=== PATIENT | male | born 1995 | race Caucasian/White ===

== ENCOUNTER 2017-07-14 15:56 | Emergency (ER) | payer BC ==
[~2017-07-14] VITALS: Ht 175.3 cm; Wt 118.2 kg
[2017-07-14 15:59] VITALS: BP 136/80; TEMP 98.5
[2017-07-14] MEDS ORDERED: MULTI VITAMINS1 TAB PO (16:21)
[2017-07-14 16:26] LABS: COLLECTION METHOD CLEAN CATCH
[2017-07-14 16:34] LABS: MUCOUS Present /lpf; PH 6 (5-8); SQUAMOUS EPITHELIAL None Seen /hpf; URINE APPEARANCE Clear; URINE BACTERIA None Seen /hpf; URINE BILIRUBIN Negative (NEGATIVE); URINE BLOOD Negative (NEGATIVE); URINE COLOR Yellow; URINE GLUCOSE Negative (NEGATIVE); URINE KETONE Negative (NEGATIVE); URINE LEUKOCYTE ESTERASE Negative (NEGATIVE); URINE NITRATE Negative (NEGATIVE); URINE PROTEIN(semi-quant) Negative (NEGATIVE); URINE RBC 0-2 /hpf; URINE UROBILINOGEN Negative (NEGATIVE)
[2017-07-14 18:17] VITALS: PULSE 79
== END 2017-07-14 18:18 | disposition home or self-care (01) ==
LOC: COL.ER 15:56
PROVIDERS: Physician Assistant
DX: S30.22XA Contusion of scrotum and testes, initial encounter (principal); X50.0XXA Overexertion from strenuous movement or load, initial encounter